=== PATIENT | male | born 1955 | race Two or more races ===

== ENCOUNTER 2024-05-15 23:46 | Inpatient (IN) | payer OTHER ==
[~2024-05-15] VITALS: Ht 170.2 cm; Wt 68.5 kg
[2024-05-16] VITALS (10 sets, daily range): BP systolic 122–140; BP diastolic 62–86; PULSE 55–75; RESP 16–20; TEMP 97.9–98.7; O2SAT 96–99
[2024-05-16] MEDS ORDERED: ACETAMINOPHEN 325 MG TAB PO PRN (02:15)
[2024-05-16] MEDS ORDERED: ONDANSETRON HCL 4 MG/2 ML VIAL IV PRN (02:15)
--- NOTE | 2024-05-16 02:29 | DVHHP2 ---
Admitting Diagnosis: right hip fracture History of Present Illness History Source: Patient Exam Limitations: No limitations HPI Mr. Dirk Ramirez is a 69 yo male with a history of hypertension, epilepsy last seizure reported x 5 years ago, patient presents as a transfer from [facility] ED as per O insurance request status post mechanical fall with right hip pain. Patient found to have right hip fracture. WBC 8.10, H&H 16.8/49.0, Platelets 272, Na 132, K 3.6, BUN 6/0.78, Patient reports he tripped and slipped due to uneven concrete denies any head trauma or LOC. Patient denies any nausea, vomiting, dizziness, headaches, chest pain, numbness or tingling to right lower extremity. Patient admitted for further evaluation. Home Meds Reported Medications Trazodone Hcl (Trazodone Hcl) 100 Mg Tab, 1 TAB PO HS 05/16/24 Topiramate (Topiramate) 25 Mg Tab, 25 MG PO BID, TAB 05/16/24 Tamsulosin Hcl (Tamsulosin Hcl) 0.4 Mg Cap, 1 CAP PO Q12HR 05/16/24 Ropinirole Hydrochloride (Ropinirole Hcl) 1 Mg Tab, 0.25 MG PO HS 05/16/24 Oxcarbazepine (OXTELLAR XR) 300 Mg Tab, 300 MG PO, TAB 05/16/24 Hydrocodone-Acetaminophen (Hydrocodone/Acetaminophen 10-325 mg) 1 Tab Tab, 1 TAB PO TID, TAB 05/16/24 Hctz (Hydrochlorothiazide) 25 Mg Tab, 25 MG PO DAILY, TAB 05/16/24 Gabapentin (Gabapentin) 800 Mg Tab, 1 TAB PO TID 05/16/24 Fluticasone Furoate (Flonase Sensimist) 27.5 Mcg/[place], 27.5 MCG NA, ML 05/16/24 Amlodipine Besylate (NORVASC TABLET) 5 Mg Tb, 5 MG PO DAILY, TAB 05/16/24 Past Medical History Cardiac: HTN Pulmonary: No pertinent Hx Central Nervous System: Seizure (last seizure x 5 years ago), Other (epilepsy) GI: No pertinent Hx Hemotology/Oncology: No pertinent Hx Hepatobiliary: No pertinent Hx Psychiatric: No pertinent Hx Musculoskeletal: No pertinent Hx Rheumotologic: No pertinent Hx Infectious Disease: No peritnent Hx ENT: No pertinent Hx Renal/: No pertinent Hx Endocrine: No pertinent Hx Dermatology: No pertinent Hx Smoker: No Hx (Negative) Alocohol: None Drugs: None Lives with: With family Domestic Violence: Neg Review of Systems Constitutional: No symptom reported Ears, Nose, & Throat: No symptom reported Eyes: No symptom reported Pulmonary/Respiratory: No symptom reported Cardiovascular: No symptom reported Gastrointestinal: No symptom reported Genitourinary: No symptom reported Musculoskeletal: Other (right hip pain) Skin: No symptom reported Psychiatric: No symptom reported Endocrine: No symptom reported Hemotologic/Lymphatic: No symptom reported H&P Exam General Appeara: Well developed, Normal Appearance, Thin Head Exam: Normal inspection Neck Exam: Normal inspection, Non-tender, Normal alignment Eye Exam: bilateral eye Normal inspection, bilateral eye PERRL, bilateral eye EOMI Ear Exam: bilateral ear Auricle normal Nasal Exam: Normal inspection Mouth: Normal Inspection Pulmonary/Respiratory: Normal inspection, Normal breath sounds, Chest non- tender, Lungs clear Cardiovascular/Chest: Normal inspection, Regular rate, Normal Rhythm Peripheral Pulses: 2+ dorsalis pedis (R), 2+ dorsalis pedis (L), 2+ Radial (R), 2+ Radial (L) Abdominal Exam: Normal bowel sounds, Soft, No tenderness Rectal Exam: Deferred Male Genital Exam: Not done Hip exam: Deformity, Limited range of motion, Pain, Swelling Neuro/Mental St: Alert, Oriented Appearance: Appropriate appearance, Appropriate insight Eye contact/ Speech: Cooperative, Good eye contact, Normal speech Thoughts/Psych: Normal thought pattern Skin Exam: Normal inspection, Normal color, Warm/dry Assessment/Plan Problem List: (1) Closed right hip fracture Plan 69 yo male with known history of hypertension, epilepsy presents as a transfer from [facility] ED as per O insurance requests with s/p mechanical fall with right hip pain. 1. Right hip fracture Admit telemetry unit Orthopedic consultation IV fluids NPO except ice chips medications EKG, Urinalysis analgesic as needed for pain management fall precautions CT abdomen pelvis wo contrast Discussed all above with patient who verbalizes agreement and understanding of care plan. All questions were answered. Discussed care plan with patient nurse Sharda IBRAHIM. Discussed assessment and care plan with supervising MD. Plan discussed with: Patient, Other Code Visit Code Visit Total Time (mins): 45 Additional Comments Additional Comments Additional Comments 69-year-old male with a known history of epilepsy, hypertension, BPH initially presented to the hospital with a status post fall found to have right hip fracture. 1. Right hip fracture status post mechanical fall 2. Epilepsy 3. Hypertension 4. BPH -orthopedics consultation, nonweightbearing of right lower extremity for now -DVT GI prophylaxis. SHIRA LARA May 16, 2024 02:29 CAESAR DURAN MD May 16, 2024 17:28
[2024-05-16] MEDS ORDERED: FLUT1SUS (03:22)
[2024-05-16] MEDS ORDERED: TRAZ-228 PO (03:22)
[2024-05-16] MEDS ORDERED: GABA800T97 PO (03:22)
[2024-05-16] MEDS ORDERED: HYDR25TA5 PO (03:22)
[2024-05-16] MEDS ORDERED: AML5T PO (03:22)
[2024-05-16] MEDS ORDERED: OXCA300T50 PO (03:22)
[2024-05-16] MEDS ORDERED: HYDR-4072 PO (03:22)
[2024-05-16] MEDS ORDERED: ROPI1TAB78 PO (03:22)
[2024-05-16] MEDS ORDERED: TAMS0.4C39 PO (03:22)
[2024-05-16] MEDS ORDERED: TOPI25TA84 PO (03:22)
[2024-05-16 03:32] LABS: Urine Bacteria None Seen /hpf (None Seen)
[2024-05-16 03:35] LABS: Urine Blood Negative /uL (Negative); Urine Clarity Clear (Clear); Urine Color Colorless (Yellow); Urine Protein, UAD Negative (Negative); Urine Specific Gravity 1.003 (1.001-1.035); Urine Urobilinogen Normal (Negative); Urine WBC <1 /hpf (0 - 3)
[2024-05-16] MEDS: D5W/SOD CHL 0.45% 1,000 ML IV SCH (05:36)
[2024-05-16] MEDS: MORPHINE SULFATE INJ 2 MG/ml SYRG IV PRN (05:45)
[2024-05-16 07:50] LABS: Basophils # (auto) 0 10 ^3/uL (0-0.2); Basophils % (auto) 0.3 % (0.0-2.0); Eosinophils # (auto) 0.1 10 ^3/uL (0-0.8); Eosinophils % (auto) 1.1 % (0.0-7.0); Hematocrit 40.8 % (41.0-53.0); Hemoglobin 14.3 g/dL (13.5-17.5); Lymphocytes # (auto) 1.2 10 ^3/uL (0.4-5.4); Lymphocytes % (auto) 15.8 % (10.0-50.0); Mean Corpuscular Hemoglobin 35.6 pg (28.0-32.0); Mean Corpuscular Hgb Conc. 34.9 g/dL (32.0-36.0); Mean Corpuscular Volume 101.9 fL (80.0-100.0); Monocytes % (auto) 12.2 % (0.0-12.0); Neutrophils # (auto) 5.5 10 ^3/uL (1.6-8.6); Neutrophils % (auto) 70.6 % (37.0-80.0); Nucleated Red Blood Cells % 0.2 %; Platelet Count (auto) 146 10^3/uL (140-450); Red Cell Distribution Width 13.8 % (11.8-14.3); White Blood Cell 7.8 10^3/uL (4.4-10.8)
[2024-05-16 08:00] LABS: INR 1.13 (0.9-1.15); Prothrombin Time 11.9 sec (9.3-11.8)
[2024-05-16 08:01] LABS: Chloride 105 mmol/L (98-107); Potassium 3.8 mmol/L (3.5-5.1); Sodium 139 mmol/L (136-145)
[2024-05-16 08:02] LABS: Anion Gap 7 (5-15); Calcium 9.3 mg/dL (8.7-10.4); Carbon Dioxide 27 mmol/L (20-31)
[2024-05-16 08:07] LABS: Glucose 87 mg/dL (74-106)
[2024-05-16 08:11] LABS: Blood Urea Nitrogen 6 mg/dL (9-23)
[2024-05-16] MEDS: ENOXAPARIN SOD 40 MG/0.4 ML SYRINGE SC SCH (10:00)
[2024-05-16] MEDS: PANTOPRAZOLE 40 MG/10 ML VIAL INJ IV SCH (10:11)
[2024-05-16] MEDS: HYDROcodone-ACET 5/325MG TAB PO PRN (13:06)
--- NOTE | 2024-05-16 13:22 | DVH ---
INDICATION: RIGHT HIP FRACTURE COMPARISON: None TECHNIQUE: CT of the right hip was performed without contrast. Volume transverse images were obtained and reconstructed in multiple planes using bone and soft tissue algorithms. Radiation Dose Information: CT Dose: CTDI volume is 8.31 mGy. Dose-length product is 258.18 mGy*cm FINDINGS: Comminuted and minimally displaced acute traumatic fracture of the right hip involving the intertroch anteric region. No evidence of traumatic dislocation. There is no joint effusion. Focal soft tissue edema surrounding the right hip fracture. IMPRESSION: 1. Comminuted in minimally displaced acute traumatic fracture of the right hip involving the intertro chanteric region. 2. All CT scans at this medical facility are performed using dose modulation techniques as appropriat e to a performed exam including the following: Automated exposure control was utilized; adjustment of the MA and/or KV according to patient size; and use of iterative reconstruction technique.
[2024-05-17] VITALS (8 sets, daily range): BP systolic 104–134; BP diastolic 46–75; PULSE 43–99; RESP 15–18; TEMP 97.2–98.5; O2SAT 53–99
[2024-05-17 06:49] LABS: Chloride 105 mmol/L (98-107); Sodium 138 mmol/L (136-145)
[2024-05-17 06:50] LABS: Anion Gap 4 (5-15); Calcium 9.2 mg/dL (8.7-10.4); Carbon Dioxide 29 mmol/L (20-31)
[2024-05-17 06:55] LABS: BUN/Creatinine Ratio 11.5 (10.0-20.0); Blood Urea Nitrogen 10 mg/dL (9-23); Glucose 99 mg/dL (74-106)
[2024-05-17 06:58] LABS: Basophils # (auto) 0 10 ^3/uL (0-0.2); Mean Corpuscular Hemoglobin 35.4 pg (28.0-32.0); Nucleated Red Blood Cells % 0.1 %
[2024-05-17 07:01] LABS: Basophils % (auto) 0.1 % (0.0-2.0); Eosinophils # (auto) 0.2 10 ^3/uL (0-0.8); Eosinophils % (auto) 1.8 % (0.0-7.0); Hematocrit 40.8 % (41.0-53.0); Lymphocytes # (auto) 1.6 10 ^3/uL (0.4-5.4); Lymphocytes % (auto) 17.8 % (10.0-50.0); Mean Corpuscular Hgb Conc. 34.3 g/dL (32.0-36.0); Monocytes % (auto) 11.2 % (0.0-12.0); Neutrophils # (auto) 6.2 10 ^3/uL (1.6-8.6); Neutrophils % (auto) 69.1 % (37.0-80.0); Platelet Count (auto) 142 10^3/uL (140-450); Red Blood Cells 3.96 10^6/uL (4.5-5.90); Red Cell Distribution Width 13.8 % (11.8-14.3)
[2024-05-17] MEDS ORDERED: fentaNYL CITRATE 100 MCG/2 ML VL ONE (07:21)
[2024-05-17] MEDS ORDERED: MIDAZOLAM HCL 2MG/2ML 2ml VIAL (1mg/ml) ONE (07:21)
[2024-05-17] MEDS ORDERED: PROPOFOL 10 MG/ML 20 ML IV ONE (07:24)
[2024-05-17] MEDS: BUPIVACAINE 0.25% INJ 50ML VIAL ONE (07:34)
[2024-05-17] MEDS: ceFAZolin 2 GM/D5W100ml 100 ML IV ONE (08:00)
--- NOTE | 2024-05-17 08:30 | DVH ---
Procedure: XY CHEST PORTABLE 05/17/2024 07:58 AM Indication: PRE-OP EVAL Comparison: None TECHNIQUE: XY CHEST PORTABLE FINDINGS: Medical devices: None. Cardiomediastinal: The heart is normal in size. Pulmonary vasculature is within normal limits. Athero sclerotic calcification of the aortic arch noted. Lungs: Streaky opacities are seen in the right lower lung zone. There is thickening of the minor fiss ure. Slight tenting of the right hemidiaphragm with ill-defined contour of the lateral right hemidiap hragm. The costophrenic angles are clear. No pneumothorax. Bones/soft tissues: No acute abnormality is noted. IMPRESSION: 1. No acute cardiopulmonary disease . 2. Right lower parenchymal scarring and pleural thickening likely sequela of a prior infection. A sub centimeter right lower lobe pulmonary nodule can not be ruled out. Suggest further evaluation with [facility] CT scan without IV contrast.
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
[2024-05-17] MEDS ORDERED: ePHEDrine SULFATE 50 MG/ML AMP ONE (09:20)
[2024-05-17] MEDS: ROPIVACAINE 0.5% (5MG/ML) 20ML AMPULE IJ ONE (09:58)
[2024-05-17] MEDS ORDERED: HYDROmorphone HCL 2 MG/ML VL/or syr IV PRN (10:30)
[2024-05-17] MEDS: ONDANSETRON HCL 4 MG/2 ML VIAL IV ONE (10:30)
[2024-05-17] MEDS ORDERED: ACETAMINOPHEN IV 1000 MG/100ML (10MG/ML) IV PRN (10:30)
--- NOTE | 2024-05-17 10:32 | DVHOP2 ---
Operative Report - 2 Report Details Date: 05/17/24 Preop Diagnosis: Right intertrochanteric fracture Postop Diagnosis: same Surgeon: Gume Guo MD Want Ad Clerk: none Anesthesiologist: Dr Lockhart Anesthesia: Regional Drains: none Implant: Short IM hip senthil with two porximmal screws Consent: The patient was informed of the risks and benefits of the procedure. These include but are not limited to complications of anesthesia, postoperative infection, incomplete relief of symptoms, recurrence of symptoms, damage to blood vessels, nerves and tendons, deep venous thrombosis, pulmonary embolism and possible need for repeat surgery in the future. Complications: none Estimated Blood Loss: 100 cc Fluids: 1 L crystalloid Findings: Right hip IT fracture Indications for Surgery: unstable fracture right proximal femur Name of Procedure Performed Open reduction internal fixation of right intertrochanteric femur fracture Procedure Details Procedure Details: Patient brought in the operating room given Ancef 1 g IV piggyback preoperatively TXA 1 g IV piggyback preoperatively placed onto flat fracture table after receiving spinal anesthetic Dr. Lockhart and substation inspector without complication well-padded peroneal post seatbelt across waist left leg in well leg chandler well-padded right leg in traction well-padded longitudinal traction slight internal rotation slight adduction and C-arm fluoro showing anatomic alignment of fracture sterile prep and drape of right hip and lower extremity time-out performed confirmation right side correct site after review of operative consent history and physical my initials on right thigh all present operating room agreeing right side correct side ORIF of right intertrochanteric femur fracture correct procedure 3 cm incision made 3 cm proximal to tip of greater trochanter sharp dissection through skin down to deep fascia deep fascia divided blunt dissection down to tip of greater trochanter guide pin placed on tip of greater trochanter and and placed into intramedullary canal C-arm fluoro taken AP and lateral view confirming good position of guide pin reaming then performed to gain access for intramedullary senthil intramedullary senthil then placed on canal and 2 screws placed into the femoral head and neck under C-arm guidance no distal scr ews due to good overall stability stable fracture pattern a standard inner troch as well as 2 proximal screws irrigation performed excellent hemostasis noted the skin closed with 2-0 Vicryl kathrin fluffs ABD paper tape no drain specimens complications. Condition Stable Disposition Still a Patient GUME GUO MD May 17, 2024 10:32
[2024-05-17] MEDS ORDERED: BISACODYL 5 MG EC TAB PO PRN (10:45)
[2024-05-17] MEDS ORDERED: NITROGLYCERIN 0.4 MG SL TAB SL PRN (10:45)
[2024-05-17] MEDS: ceFAZolin 1GM/50ML 50 ML IV SCH (10:45)
[2024-05-17] MEDS: LACTATED RINGER'S 1,000 ML IV SCH (10:45)
[2024-05-17] MEDS: CLINDAMYCIN 600MG IV 50 ML IV SCH (12:12)
[2024-05-17] MEDS: KETOROLAC TROMETH 30 MG/ML 1ML VIAL IV SCH (12:12)
--- NOTE | 2024-05-17 12:49 | DVH ---
C-ARM FLUOROSCOPY: PROCEDURE: left hip orif FLUOROSCOPY TIME: 1 min 1 sec
--- NOTE | 2024-05-17 12:49 | DVH ---
C-ARM FLUOROSCOPY: PROCEDURE: left hip orif FLUOROSCOPY TIME: 1 min 1 sec
--- NOTE | 2024-05-17 16:16 | DVHPN2 ---
Subjective OVERNIGHT EVENTS NOTED. Reviewed: Care Plan Changes from previous H/P or p: No Changes Objective Vitals Vital Signs Date Time Temp Pulse Resp B/P (MAP) Pulse Ox O2 Delivery O2 Flow Rate FiO2 05/17/24 14:31 68 16 125/63 05/17/24 13:00 97.2 53 97.2 05/17/24 10:22 Room Air 0 05/17/24 10:22 95 Intake/Output Intake and Output 05/17/24 07:00 Intake Total 836 ml Output Total 1630 ml Balance -794 ml Intake Oral 836 ml Output Urine Total 1630 ml # Voids 1 Exam HEENT PUPILS REACTIVE NECK IS SUPPLE CV IS S1-S2 REGULAR RATE AND RHYTHM DIMINISHED BREATH SOUNDS BASES GI POSITIVE BOWEL SOUNDS EXTREMITY NO EDEMA WIRE WEAVER CLOTH NO MOTOR DEFICIT EXCEPT RIGHT LOWER EXTREMITY CAN NOT BE TESTED BECAUSE OF RECENT SURGERY. Medications Current Medications Medications Dose Ordered Sig/Migel Route Start Time Stop Time Status Last Admin Dose Admin Ondansetron HCl 4 mg Q6HPRN PRN IV 05/16/24 02:15 Morphine Sulfate 2 mg Q6HPRN PRN IV 05/16/24 02:15 05/17/24 14:01 2 MG Enoxaparin Sodium 40 mg DAILY SC 05/16/24 10:00 05/16/24 10:00 40 MG Acetaminophen/ Hydrocodone Bitart 1 tab Q6HPRN PRN PO 05/16/24 02:15 05/16/24 19:37 1 TAB Acetaminophen 650 mg Q6HPRN PRN PO 05/16/24 02:15 Pantoprazole Sodium 40 mg DAILY IV 05/16/24 10:00 05/16/24 10:11 40 MG Dextrose/Sodium Chloride 1,000 ml @ 75 mls/hr [id number] IV 05/16/24 05:30 05/17/24 07:06 75 MLS/HR Lactated Ringer's 1,000 ml @ 100 mls/hr Q10H IV 05/17/24 10:45 Cefazolin Sodium 50 ml @ 50 mls/hr Q6H IV 05/17/24 10:45 05/17/24 23:44 Clindamycin Phosphate 50 ml @ 50 mls/hr Q6HR IV 05/17/24 12:00 05/18/24 00:59 05/17/24 12:12 50 MLS/HR Docusate Sodium 100 mg Q12HR PO 05/17/24 22:00 Bisacodyl 5 mg Q12HP PRN PO 05/17/24 10:45 Ketorolac Tromethamine 15 mg Q6HR IV 05/17/24 12:00 05/22/24 11:59 05/17/24 12:12 15 MG Nitroglycerin 0.4 mg Q5MINP PRN SL 05/17/24 10:45 Laboratory Results Laboratory Tests 05/17/24 06:02 Chemistry Test 05/17/24 06:02 Calcium Level 9.2 mg/dL (8.7-10.4) Urinalysis Test 05/16/24 03:23 Urine Color Colorless (Yellow) Urine Clarity Clear (Clear) Urine pH 5.0 (5.0-9.0) Urine Specific [place] 1.003 (1.001-1.035) Urine Protein Negative (Negative) Urine Ketones Negative (Negative) Urine Blood Negative /uL (Negative) Urine Nitrite Negative (Negative) Urine Bilirubin Negative (Negative) Urine Urobilinogen Normal mg/dL (Negative) Urine Leukocyte Esterase Negative /uL (Negative) Urine RBC <1 /hpf (0 - 3) Urine WBC <1 /hpf (0 - 3) Urine Squamous Epithelial Cells None seen /hpf (<5) Urine Bacteria None seen /hpf (None Seen) Urine Glucose Normal mg/dL (Normal) Assessment/Plan Assessment/Plan 69-year-old male with a known history of epilepsy, hypertension, BPH initially presented to the hospital with a status post fall found to have right hip fracture. 1. Right hip fracture status post mechanical fall STATUS POST INTRAMEDULLARY POSTOP DAY 0 2. Epilepsy 3. Hypertension 4. BPH -PAIN MEDS NEEDED, DVT GI PROPHYLAXIS, PHYSICAL THERAPY EVALUATION AND TREATMENT -DISCHARGE PLAN Plan discussed with: Patient Date of Service: May 17, 2024 Billing Provider: CAESAR DURAN MD Common Visit Codes: NOT BILLABLE CAESAR DURAN MD May 17, 2024 16:16
[2024-05-17] MEDS: DOCUSATE SOD 100 MG CAP PO SCH (21:30)
[2024-05-18] VITALS (8 sets, daily range): BP systolic 110–140; BP diastolic 41–70; PULSE 55–78; RESP 17–20; TEMP 98–99.6; O2SAT 99–100
[2024-05-18 05:43] LABS: Basophils # (auto) 0 10 ^3/uL (0-0.2); Eosinophils # (auto) 0.2 10 ^3/uL (0-0.8); Eosinophils % (auto) 2.3 % (0.0-7.0); Mean Corpuscular Volume 102.3 fL (80.0-100.0)
[2024-05-18 05:46] LABS: Basophils % (auto) 0.3 % (0.0-2.0); Hematocrit 30.3 % (41.0-53.0); Hemoglobin 10.5 g/dL (13.5-17.5); Lymphocytes # (auto) 1.2 10 ^3/uL (0.4-5.4); Lymphocytes % (auto) 14.8 % (10.0-50.0); Mean Corpuscular Hemoglobin 35.6 pg (28.0-32.0); Mean Corpuscular Hgb Conc. 34.8 g/dL (32.0-36.0); Monocytes # (auto) 1.1 10 ^3/uL (0-1.3); Monocytes % (auto) 13.7 % (0.0-12.0); Neutrophils # (auto) 5.7 10 ^3/uL (1.6-8.6); Neutrophils % (auto) 68.9 % (37.0-80.0); Platelet Count (auto) 127 10^3/uL (140-450); Red Blood Cells 2.96 10^6/uL (4.5-5.90); Red Cell Distribution Width 13.4 % (11.8-14.3); White Blood Cell 8.3 10^3/uL (4.4-10.8)
[2024-05-18 06:03] LABS: Anion Gap 3 (5-15); Carbon Dioxide 30 mmol/L (20-31); Chloride 105 mmol/L (98-107); Sodium 138 mmol/L (136-145)
[2024-05-18 06:04] LABS: Calcium 8.9 mg/dL (8.7-10.4)
[2024-05-18 06:09] LABS: BUN/Creatinine Ratio 11.3 (10.0-20.0); Blood Urea Nitrogen 9 mg/dL (9-23)
[2024-05-18 06:16] LABS: Glucose 117 mg/dL (74-106)
--- NOTE | 2024-05-18 13:28 | DVHPN2 ---
Date of Progress Note Date of Progress Note Date of Progress Note: 05/18/24 Date of Admission Date of Admission Date of Admission: Date of Admission: May 16, 2024 at 02:18 Overnight Events Overnight events Overnight Events Pt progressed to reg diet, faizan pain on PO meds, lofton removed and able to void Past Medical History Past Medical History Past Medical History HTN, epilepsy, last seizure 5y ago, HTN Family History Family History Family History: Patient reports no known family medical history. Allergies: Coded Allergies: NO KNOWN ALLERGIES (Unverified , 05/16/24) Home Meds Reported Medications Trazodone Hcl (Trazodone Hcl) 100 Mg Tab, 1 TAB PO HS 05/16/24 Topiramate (Topiramate) 25 Mg Tab, 25 MG PO BID, TAB 05/16/24 Tamsulosin Hcl (Tamsulosin Hcl) 0.4 Mg Cap, 1 CAP PO Q12HR 05/16/24 Ropinirole Hydrochloride (Ropinirole Hcl) 1 Mg Tab, 0.25 MG PO HS 05/16/24 Oxcarbazepine (OXTELLAR XR) 300 Mg Tab, 300 MG PO, TAB 05/16/24 Hydrocodone-Acetaminophen (Hydrocodone/Acetaminophen 10-325 mg) 1 Tab Tab, 1 TAB PO TID, TAB 05/16/24 Hctz (Hydrochlorothiazide) 25 Mg Tab, 25 MG PO DAILY, TAB 05/16/24 Gabapentin (Gabapentin) 800 Mg Tab, 1 TAB PO TID 05/16/24 Fluticasone Furoate (Flonase Sensimist) 27.5 Mcg/[place] Arlet, 27.5 MCG NA, ML 05/16/24 Amlodipine Besylate (NORVASC TABLET) 5 Mg Tb, 5 MG PO DAILY, TAB 05/16/24 Current Medications Current Medications Medications (Trade) Dose Ordered Sig/Migel Route PRN Reason Start Time Stop Time Status Last Admin Docusate Sodium (Colace Capsule) 100 mg Q12HR PO 05/17/24 22:00 05/17/24 21:30 Physical Examination General Examination: Last Vital sign Vital Signs Date Time Temp Pulse Resp B/P (MAP) Pulse Ox O2 Delivery O2 Flow Rate FiO2 05/18/24 09:00 98.3 60 20 128/70 (89) 100 98.3 05/17/24 20:00 Room Air* 0 21 General: General: No apparent distress, appears comfortable. Cooperative. Extremities: right hip, no drainage, NVI, not up w PT yet Skin: no drainage Neurological Examination: Neurological Examination: Mental Status: Cranial Nerves: Motor Examination: Reflexes: Sensory: Coordination: Gait: NVI Labs: Labs: Laboratory Tests Test 05/16/24 03:23 05/16/24 05:58 05/17/24 06:02 05/18/24 05:11 Range/Units Urine Color Colorless Yellow Urine Clarity Clear Clear Urine pH 5.0 5.0-9.0 Urine Specific [place] 1.003 1.001-1.035 Urine Protein Negative Negative Urine Ketones Negative Negative Urine Blood Negative Negative /uL Urine Nitrite Negative Negative Urine Bilirubin Negative Negative Urine Urobilinogen Normal Negative mg/dL Urine Leukocyte Esterase Negative Negative /uL Urine RBC <1 0 - 3 /hpf Urine WBC <1 0 - 3 /hpf Urine Squamous Epithelial Cells None seen <5 /hpf Urine Bacteria None seen None Seen /hpf Urine Glucose Normal Normal mg/dL White Blood Count 7.8 9.0 8.3 4.4-10.8 10^3/uL Red Blood Count 4.00 L 3.96 L 2.96 L 4.5-5.90 10^6/uL Hemoglobin 14.3 14.0 10.5 #L 13.5-17.5 g/dL Hematocrit 40.8 L 40.8 L 30.3 #L 41.0-53.0 % Mean Corpuscular Volume 101.9 H 103.0 H 102.3 H 80.0-100.0 fL Mean Corpuscular Hemoglobin 35.6 H 35.4 H 35.6 H 28.0-32.0 pg Mean Corpuscular Hemoglobin Concent 34.9 34.3 34.8 32.0-36.0 g/dL Red Cell Distribution Width 13.8 13.8 13.4 11.8-14.3 % Platelet Count 146 142 127 L 140-450 10^3/uL Mean Platelet Volume 7.7 7.5 7.8 6.9-10.8 fL Neutrophils (%) (Auto) 70.6 69.1 68.9 37.0-80.0 % Lymphocytes (%) (Auto) 15.8 17.8 14.8 10.0-50.0 % Monocytes (%) (Auto) 12.2 H 11.2 13.7 H 0.0-12.0 % Eosinophils (%) (Auto) 1.1 1.8 2.3 0.0-7.0 % Basophils (%) (Auto) 0.3 0.1 0.3 0.0-2.0 % Neutrophils # (Auto) 5.5 6.2 5.7 1.6-8.6 10 ^3/uL Lymphocytes # (Auto) 1.2 1.6 1.2 0.4-5.4 10 ^3/uL Monocytes # (Auto) 1.0 1.0 1.1 0-1.3 10 ^3/uL Eosinophils # (Auto) 0.1 0.2 0.2 0-0.8 10 ^3/uL Basophils # (Auto) 0 0 0 0-0.2 10 ^3/uL Nucleated Red Blood Cells 0.2 0.1 0.0 % Prothrombin Time 11.9 H 9.3-11.8 sec Prothrombin Time INR 1.13 0.9-1.15 Sodium Level 139 138 138 136-145 mmol/L Potassium Level 3.8 4.0 4.0 3.5-5.1 mmol/L Chloride Level 105 105 105 98-107 mmol/L Carbon Dioxide Level 27 29 30 20-31 mmol/L Anion Gap 7 4 L 3 L 5-15 Blood Urea Nitrogen 6 L 10 9 9-23 mg/dL Creatinine 0.75 0.87 0.80 0.700-1.30 mg/dL Glomerular Filtration Rate Calc 98 93 96 >90 mL/min BUN/Creatinine Ratio 8.0 L 11.5 11.3 10.0-20.0 Serum Glucose 87 99 117 H 74-106 mg/dL Calcium Level 9.3 9.2 8.9 8.7-10.4 mg/dL Assessment/Plan Assessment/Plan Assessment and Plan:Dirk Ramirez is a 69 year old male who presents with POD 1 s/p Right IT fx ORIF, Ht 30, lofton out, able to void, faizan pain on POs 1) PT, TDWB right LE 2) am CBC Plan discussed with: Patient AMEENA GUO MD May 18, 2024 13:28
[2024-05-18 14:20] LABS: Basophils # (auto) 0 10 ^3/uL (0-0.2); Basophils % (auto) 0.3 % (0.0-2.0); Eosinophils # (auto) 0.2 10 ^3/uL (0-0.8); Eosinophils % (auto) 1.9 % (0.0-7.0); Hemoglobin 10.4 g/dL (13.5-17.5); Lymphocytes # (auto) 1.2 10 ^3/uL (0.4-5.4); Lymphocytes % (auto) 12.8 % (10.0-50.0); Mean Corpuscular Hemoglobin 35.6 pg (28.0-32.0); Mean Corpuscular Hgb Conc. 34.8 g/dL (32.0-36.0); Mean Corpuscular Volume 102.2 fL (80.0-100.0); Monocytes # (auto) 1.2 10 ^3/uL (0-1.3); Monocytes % (auto) 12.8 % (0.0-12.0); Neutrophils # (auto) 6.8 10 ^3/uL (1.6-8.6); Neutrophils % (auto) 72.2 % (37.0-80.0); Nucleated Red Blood Cells % 0.1 %; Platelet Count (auto) 135 10^3/uL (140-450); Red Blood Cells 2.93 10^6/uL (4.5-5.90); Red Cell Distribution Width 13.6 % (11.8-14.3); White Blood Cell 9.3 10^3/uL (4.4-10.8)
--- NOTE | 2024-05-18 17:05 | DVHPN2 ---
Subjective OVERNIGHT EVENTS NOTED. Patient is status post right hip surgery. Reviewed: Care Plan Changes from previous H/P or p: No Changes Objective Vitals Vital Signs Date Time Temp Pulse Resp B/P (MAP) Pulse Ox O2 Delivery O2 Flow Rate FiO2 05/18/24 09:00 98.3 60 20 128/70 (89) 100 98.3 05/17/24 20:00 Room Air* 0 21 Intake/Output Intake and Output 05/18/24 07:00 Intake Total 1865 ml Output Total 1150 ml Balance 715 ml Intake Oral 590 ml IV Total 1275 ml Output Urine Total 1150 ml Exam HEENT PUPILS REACTIVE NECK IS SUPPLE CV IS S1-S2 REGULAR RATE AND RHYTHM DIMINISHED BREATH SOUNDS BASES GI POSITIVE BOWEL SOUNDS EXTREMITY NO EDEMA FIRE LIEUTENANT MARINE NO MOTOR DEFICIT EXCEPT RIGHT LOWER EXTREMITY CAN NOT BE TESTED BECAUSE OF RECENT SURGERY. Medications Current Medications Medications Dose Ordered Sig/Migel Route Start Time Stop Time Status Last Admin Dose Admin Ondansetron HCl 4 mg Q6HPRN PRN IV 05/16/24 02:15 Morphine Sulfate 2 mg Q6HPRN PRN IV 05/16/24 02:15 05/17/24 21:43 2 MG Enoxaparin Sodium 40 mg DAILY SC 05/16/24 10:00 05/16/24 10:00 40 MG Acetaminophen/ Hydrocodone Bitart 1 tab Q6HPRN PRN PO 05/16/24 02:15 05/18/24 12:17 1 TAB Acetaminophen 650 mg Q6HPRN PRN PO 05/16/24 02:15 Pantoprazole Sodium 40 mg DAILY IV 05/16/24 10:00 05/16/24 10:11 40 MG Dextrose/Sodium Chloride 1,000 ml @ 75 mls/hr [id number] IV 05/16/24 05:30 05/17/24 21:35 75 MLS/HR Lactated Ringer's 1,000 ml @ 100 mls/hr Q10H IV 05/17/24 10:45 Docusate Sodium 100 mg Q12HR PO 05/17/24 22:00 05/17/24 21:30 100 MG Bisacodyl 5 mg Q12HP PRN PO 05/17/24 10:45 Ketorolac Tromethamine 15 mg Q6HR IV 05/17/24 12:00 05/22/24 11:59 05/18/24 06:16 15 MG Nitroglycerin 0.4 mg Q5MINP PRN SL 05/17/24 10:45 Laboratory Results Laboratory Tests 05/18/24 05:11 05/18/24 14:03 Chemistry Test 05/18/24 05:11 Calcium Level 8.9 mg/dL (8.7-10.4) Urinalysis Test 05/16/24 03:23 Urine Color Colorless (Yellow) Urine Clarity Clear (Clear) Urine pH 5.0 (5.0-9.0) Urine Specific [place] 1.003 (1.001-1.035) Urine Protein Negative (Negative) Urine Ketones Negative (Negative) Urine Blood Negative /uL (Negative) Urine Nitrite Negative (Negative) Urine Bilirubin Negative (Negative) Urine Urobilinogen Normal mg/dL (Negative) Urine Leukocyte Esterase Negative /uL (Negative) Urine RBC <1 /hpf (0 - 3) Urine WBC <1 /hpf (0 - 3) Urine Squamous Epithelial Cells None seen /hpf (<5) Urine Bacteria None seen /hpf (None Seen) Urine Glucose Normal mg/dL (Normal) Assessment/Plan Assessment/Plan 69-year-old male with a known history of epilepsy, hypertension, BPH initially presented to the hospital with a status post fall found to have right hip fracture. 1. Right hip fracture status post mechanical fall STATUS POST INTRAMEDULLARY POSTOP DAY 1 2. Epilepsy 3. Hypertension 4. BPH -PAIN MEDS NEEDED, DVT GI PROPHYLAXIS, PHYSICAL THERAPY EVALUATION AND TREATMENT -DISCHARGE PLAN once cleared by Orthopedics. Plan discussed with: Patient, Other My Orders Orders - CAESAR DURAN MD Procedure Category Date Status Time * [employer] CONS 05/18/24 Transmitted Consult Pt Request For Service PT 05/18/24 Logged 16:04 Date of Service: May 18, 2024 Billing Provider: CAESAR DURAN MD Common Visit Codes: NOT BILLABLE CAESAR DURAN MD May 18, 2024 17:05
[2024-05-19] VITALS (7 sets, daily range): BP systolic 103–145; BP diastolic 54–67; PULSE 17–77; RESP 17–19; TEMP 98.1–99.2; O2SAT 98–100
[2024-05-19 07:16] LABS: Hemoglobin 9.8 g/dL (13.5-17.5)
[2024-05-19 07:18] LABS: Hematocrit 28.4 % (41.0-53.0)
[2024-05-19 14:06] LABS: Basophils # (auto) 0 10 ^3/uL (0-0.2); Hemoglobin 10.7 g/dL (13.5-17.5); Mean Corpuscular Volume 102.9 fL (80.0-100.0); Monocytes # (auto) 1.1 10 ^3/uL (0-1.3); Neutrophils # (auto) 6.7 10 ^3/uL (1.6-8.6)
[2024-05-19 14:08] LABS: Basophils % (auto) 0.3 % (0.0-2.0); Eosinophils # (auto) 0.2 10 ^3/uL (0-0.8); Eosinophils % (auto) 1.9 % (0.0-7.0); Lymphocytes # (auto) 1.1 10 ^3/uL (0.4-5.4); Lymphocytes % (auto) 12.5 % (10.0-50.0); Mean Corpuscular Hemoglobin 35.5 pg (28.0-32.0); Mean Corpuscular Hgb Conc. 34.5 g/dL (32.0-36.0); Monocytes % (auto) 12.2 % (0.0-12.0); Neutrophils % (auto) 73.1 % (37.0-80.0); Platelet Count (auto) 172 10^3/uL (140-450); Red Blood Cells 3.01 10^6/uL (4.5-5.90); Red Cell Distribution Width 13.4 % (11.8-14.3); White Blood Cell 9.2 10^3/uL (4.4-10.8)
[2024-05-19] MEDS ORDERED: HYDR-4798 PO (15:30)
[2024-05-19] MEDS ORDERED: NALO4SPR2 (15:30)
[2024-05-19] MEDS ORDERED: ASPI-543 PO (15:30)
--- NOTE | 2024-05-19 16:12 | DVHPN2 ---
Date of Progress Note Date of Progress Note Date of Progress Note: 05/19/24 Date of Admission Date of Admission Date of Admission: Date of Admission: May 16, 2024 at 02:18 Overnight Events Overnight events Overnight Events Pt faizan POs well, Pt faizan PT well Past Medical History Past Medical History Past Medical History HTN, epilepsy, last seizure 5y ago, HTN Family History Family History Family History: Patient reports no known family medical history. Allergies: Coded Allergies: NO KNOWN ALLERGIES (Unverified , 05/16/24) Home Meds Active Scripts Aspirin (Aspir-Low) 81 Mg Tab, 81 MG PO BIDPC for 21 Days, #42 TAB Prov:CAESAR DURAN MD 05/19/24 Naloxone HCl (Narcan) 4 Mg/0.1 Ml Spr, 4 MG NA [employer], #2 SPRAY Prov:CAESAR DURAN MD 05/19/24 Hydrocodone-Acetaminophen (Hydrocodone Bitartrate/AC 10-325 mg) 1 Tab Tab, 1 TAB PO Q8HPRN PRN, #14 TAB Prov:CAESAR DURAN MD 05/19/24 Reported Medications Trazodone Hcl (Trazodone Hcl) 100 Mg Tab, 1 TAB PO HS 05/16/24 Topiramate (Topiramate) 25 Mg Tab, 25 MG PO BID, TAB 05/16/24 Tamsulosin Hcl (Tamsulosin Hcl) 0.4 Mg Cap, 1 CAP PO Q12HR 05/16/24 Ropinirole Hydrochloride (Ropinirole Hcl) 1 Mg Tab, 0.25 MG PO HS 05/16/24 Oxcarbazepine (OXTELLAR XR) 300 Mg Tab, 300 MG PO, TAB 05/16/24 Hydrocodone-Acetaminophen (Hydrocodone/Acetaminophen 10-325 mg) 1 Tab Tab, 1 TAB PO TID, TAB 05/16/24 Hctz (Hydrochlorothiazide) 25 Mg Tab, 25 MG PO DAILY, TAB 05/16/24 Gabapentin (Gabapentin) 800 Mg Tab, 1 TAB PO TID 05/16/24 Fluticasone Furoate (Flonase Sensimist) 27.5 Mcg/[place], 27.5 MCG NA, ML 05/16/24 Amlodipine Besylate (NORVASC TABLET) 5 Mg Tb, 5 MG PO DAILY, TAB 05/16/24 Physical Examination General Examination: Last Vital sign Vital Signs Date Time Temp Pulse Resp B/P (MAP) Pulse Ox O2 Delivery O2 Flow Rate FiO2 05/19/24 13:00 98.1 70 18 134/58 (83) 98 98.1 05/18/24 20:00 Room Air* 0 21 General: General: No apparent distress, appears comfortable. Cooperative. HEENT: alert oriented x4 Extremities: Right hip, incision, no drainage, NVI R LE Skin: intact Neurological Examination: Neurological Examination: Mental Status: Cranial Nerves: Motor Examination: Reflexes: Sensory: Coordination: Gait: NVI Labs: Labs: Laboratory Tests Test 05/16/24 03:23 05/16/24 05:58 05/17/24 06:02 05/18/24 05:11 Range/Units Urine Color Colorless Yellow Urine Clarity Clear Clear Urine pH 5.0 5.0-9.0 Urine Specific [place] 1.003 1.001-1.035 Urine Protein Negative Negative Urine Ketones Negative Negative Urine Blood Negative Negative /uL Urine Nitrite Negative Negative Urine Bilirubin Negative Negative Urine Urobilinogen Normal Negative mg/dL Urine Leukocyte Esterase Negative Negative /uL Urine RBC <1 0 - 3 /hpf Urine WBC <1 0 - 3 /hpf Urine Squamous Epithelial Cells None seen <5 /hpf Urine Bacteria None seen None Seen /hpf Urine Glucose Normal Normal mg/dL White Blood Count 7.8 9.0 8.3 4.4-10.8 10^3/uL Red Blood Count 4.00 L 3.96 L 2.96 L 4.5-5.90 10^6/uL Hemoglobin 14.3 14.0 10.5 #L 13.5-17.5 g/dL Hematocrit 40.8 L 40.8 L 30.3 #L 41.0-53.0 % Mean Corpuscular Volume 101.9 H 103.0 H 102.3 H 80.0-100.0 fL Mean Corpuscular Hemoglobin 35.6 H 35.4 H 35.6 H 28.0-32.0 pg Mean Corpuscular Hemoglobin Concent 34.9 34.3 34.8 32.0-36.0 g/dL Red Cell Distribution Width 13.8 13.8 13.4 11.8-14.3 % Platelet Count 146 142 127 L 140-450 10^3/uL Mean Platelet Volume 7.7 7.5 7.8 6.9-10.8 fL Neutrophils (%) (Auto) 70.6 69.1 68.9 37.0-80.0 % Lymphocytes (%) (Auto) 15.8 17.8 14.8 10.0-50.0 % Monocytes (%) (Auto) 12.2 H 11.2 13.7 H 0.0-12.0 % Eosinophils (%) (Auto) 1.1 1.8 2.3 0.0-7.0 % Basophils (%) (Auto) 0.3 0.1 0.3 0.0-2.0 % Neutrophils # (Auto) 5.5 6.2 5.7 1.6-8.6 10 ^3/uL Lymphocytes # (Auto) 1.2 1.6 1.2 0.4-5.4 10 ^3/uL Monocytes # (Auto) 1.0 1.0 1.1 0-1.3 10 ^3/uL Eosinophils # (Auto) 0.1 0.2 0.2 0-0.8 10 ^3/uL Basophils # (Auto) 0 0 0 0-0.2 10 ^3/uL Nucleated Red Blood Cells 0.2 0.1 0.0 % Prothrombin Time 11.9 H 9.3-11.8 sec Prothrombin Time INR 1.13 0.9-1.15 Sodium Level 139 138 138 136-145 mmol/L Potassium Level 3.8 4.0 4.0 3.5-5.1 mmol/L Chloride Level 105 105 105 98-107 mmol/L Carbon Dioxide Level 27 29 30 20-31 mmol/L Anion Gap 7 4 L 3 L 5-15 Blood Urea Nitrogen 6 L 10 9 9-23 mg/dL Creatinine 0.75 0.87 0.80 0.700-1.30 mg/dL Glomerular Filtration Rate Calc 98 93 96 >90 mL/min BUN/Creatinine Ratio 8.0 L 11.5 11.3 10.0-20.0 Serum Glucose 87 99 117 H 74-106 mg/dL Calcium Level 9.3 9.2 8.9 8.7-10.4 mg/dL Test 05/18/24 14:03 05/19/24 06:52 05/19/24 13:10 Range/Units White Blood Count 9.3 9.2 4.4-10.8 10^3/uL Red Blood Count 2.93 L 3.01 L 4.5-5.90 10^6/uL Hemoglobin 10.4 L 9.8 L 10.7 L 13.5-17.5 g/dL Hematocrit 30.0 L 28.4 L 31.0 L 41.0-53.0 % Mean Corpuscular Volume 102.2 H 102.9 H 80.0-100.0 fL Mean Corpuscular Hemoglobin 35.6 H 35.5 H 28.0-32.0 pg Mean Corpuscular Hemoglobin Concent 34.8 34.5 32.0-36.0 g/dL Red Cell Distribution Width 13.6 13.4 11.8-14.3 % Platelet Count 135 L 172 140-450 10^3/uL Mean Platelet Volume 7.7 7.6 6.9-10.8 fL Neutrophils (%) (Auto) 72.2 73.1 37.0-80.0 % Lymphocytes (%) (Auto) 12.8 12.5 10.0-50.0 % Monocytes (%) (Auto) 12.8 H 12.2 H 0.0-12.0 % Eosinophils (%) (Auto) 1.9 1.9 0.0-7.0 % Basophils (%) (Auto) 0.3 0.3 0.0-2.0 % Neutrophils # (Auto) 6.8 6.7 1.6-8.6 10 ^3/uL Lymphocytes # (Auto) 1.2 1.1 0.4-5.4 10 ^3/uL Monocytes # (Auto) 1.2 1.1 0-1.3 10 ^3/uL Eosinophils # (Auto) 0.2 0.2 0-0.8 10 ^3/uL Basophils # (Auto) 0 0 0-0.2 10 ^3/uL Nucleated Red Blood Cells 0.1 0.0 % Assessment/Plan Assessment/Plan Assessment and Plan:Dirk Ramirez is a 69 year old male, POD 2 s/p ORIF R hi p IT fracture If Pt should develop palpitations or dizzyness, present to ER due to interval in house drop in HCT recommend repeat Hct before dc to home Plan discussed with: Patient AMEENA GUO MD May 19, 2024 16:12
--- NOTE | 2024-05-19 16:16 | DVHDS2 ---
Discharge Summary Date of Admission May 16, 2024 at 02:18 Date of Discharge: May 19, 2024 Labs/Diagnostic Data: Laboratory Results Test 05/19/24 13:10 05/18/24 05:11 05/16/24 05:58 05/16/24 03:23 White Blood Count 9.2 10^3/uL (4.4-10.8) Red Blood Count 3.01 10^6/uL (4.5-5.90) Hemoglobin 10.7 g/dL (13.5-17.5) Hematocrit 31.0 % (41.0-53.0) Mean Corpuscular Volume 102.9 fL (80.0-100.0) Mean Corpuscular Hemoglobin 35.5 pg (28.0-32.0) Mean Corpuscular Hemoglobin Concent 34.5 g/dL (32.0-36.0) Red Cell Distribution Width 13.4 % (11.8-14.3) Platelet Count 172 10^3/uL (140-450) Mean Platelet Volume 7.6 fL (6.9-10.8) Neutrophils (%) (Auto) 73.1 % (37.0-80.0) Lymphocytes (%) (Auto) 12.5 % (10.0-50.0) Monocytes (%) (Auto) 12.2 % (0.0-12.0) Eosinophils (%) (Auto) 1.9 % (0.0-7.0) Basophils (%) (Auto) 0.3 % (0.0-2.0) Neutrophils # (Auto) 6.7 10 ^3/uL (1.6-8.6) Lymphocytes # (Auto) 1.1 10 ^3/uL (0.4-5.4) Monocytes # (Auto) 1.1 10 ^3/uL (0-1.3) Eosinophils # (Auto) 0.2 10 ^3/uL (0-0.8) Basophils # (Auto) 0 10 ^3/uL (0-0.2) Nucleated Red Blood Cells 0.0 % Sodium Level 138 mmol/L (136-145) Potassium Level 4.0 mmol/L (3.5-5.1) Chloride Level 105 mmol/L (98-107) Carbon Dioxide Level 30 mmol/L (20-31) Anion Gap 3 (5-15) Blood Urea Nitrogen 9 mg/dL (9-23) Creatinine 0.80 mg/dL (0.700-1.30) Glomerular Filtration Rate Calc 96 mL/min (>90) BUN/Creatinine Ratio 11.3 (10.0-20.0) Serum Glucose 117 mg/dL (74-106) Calcium Level 8.9 mg/dL (8.7-10.4) Prothrombin Time 11.9 sec (9.3-11.8) Prothrombin Time INR 1.13 (0.9-1.15) Urine Color Colorless (Yellow) Urine Clarity Clear (Clear) Urine pH 5.0 (5.0-9.0) Urine Specific [place] 1.003 (1.001-1.035) Urine Protein Negative (Negative) Urine Ketones Negative (Negative) Urine Blood Negative /uL (Negative) Urine Nitrite Negative (Negative) Urine Bilirubin Negative (Negative) Urine Urobilinogen Normal mg/dL (Negative) Urine Leukocyte Esterase Negative /uL (Negative) Urine RBC <1 /hpf (0 - 3) Urine WBC <1 /hpf (0 - 3) Urine Squamous Epithelial Cells None seen /hpf (<5) Urine Bacteria None seen /hpf (None Seen) Urine Glucose Normal mg/dL (Normal) Other Laboratory Tests 05/19/24 13:10 05/18/24 05:11 Brief Hx & Hospital Course: 69-year-old male with a known history of epilepsy, hypertension, BPH initially presented to the hospital with a status post fall found to have right hip fracture status post mechanical fall status post intramedullary senthil placement. Patient does have known history of epilepsy hypertension BPH. Patient is currently stable to be discharged with close follow up as an outpatient with the PCP as well as Orthopedics. Condition at Discharge: Stable Final Diagnosis/Problems List 69-year-old male with a known history of epilepsy, hypertension, BPH initially presented to the hospital with a status post fall found to have right hip fracture. 1. Right hip fracture status post mechanical fall STATUS POST INTRAMEDULLARY POSTOP DAY 1 2. Epilepsy 3. Hypertension 4. BPH Discharge Disposition: Home with [facility] Services [facility] Discharge Will this Physician continue t: No Discharge Instruct/Medications Diet: Cardiac 2g Na,low cholest Activity: See Comment Activity comment: No driving, no signing legal documents, no playing on heavy machinery while on narcotics. Follow Up/Referral: Follow up with the PCP in one week Follow up with Orthopedics Dr. Martin Martines in 1-2 weeks Medications: Medication as prescribed and reconciled Discharge Statement: "Patient was advised to return to the ER or call 911 if any headaches, dizziness, shortness of breath, chest pain, abdominal pain, bleeding, fevers, or worsening of medical condition. Patient was counseled about treatment plan, medications, possible side effects, patientverbalized understanding. All questions were answered to the best of my ability. This discharge took greater then 30 minutes in planning, reviewing documentation, counseling the patient, and discussing with other team members." ASSESSMENT ASSESSMENT Assessment 69-year-old male with a known history of epilepsy, hypertension, BPH initially presented to the hospital with a status post fall found to have right hip fracture. 1. Right hip fracture status post mechanical fall STATUS POST INTRAMEDULLARY POSTOP DAY 1 2. Epilepsy 3. Hypertension 4. BPH Date of Service: May 19, 2024 Billing Provider: CAESAR DURAN MD Common Visit Codes: NOT BILLABLE CAESAR DURAN MD May 19, 2024 16:16
--- NOTE | 2024-05-30 10:37 | ECG ---
[facility] Test Date: 2024-05-17 Test Time: 07:41:25 Pat Name: ROB CARDONA Department: Room: 0218T B Gender: M Load Out Supervisor: ALEXANDRIA HART : 1955 Requested By: AMEENA GUO Order Number: [id number] Reading MD: Jorge Wodo Measurements Intervals [place] Rate: 52 P: -70 MA: 117 QRS: 10 QRSD: 106 T: 42 QT: 456 QTc: 424 Interpretive Statements Sinus or ectopic atrial rhythm Borderline short MA interval Baseline wander in lead(s) V1,V2 Electronically Signed On 05-31-2024 15:34:48 PST by Jorge Wood Please click the below link to view image of tracing.
== END 2024-05-19 18:17 | disposition home health service (06) | DRG 481 ==
LOC: TELE-CENTR 05-16 02:18
PROVIDERS: ADMIT Orthopaedic Surgery; ATTEND Hospitalist
PROC: 0QS606Z Reposition Right Upper Femur with Intramedullary Internal Fixation Device, Open Approach (ICD-10-PCS; principal; 2024-05-17 09:00)
DX: S72.141A Displaced intertrochanteric fracture of right femur, initial encounter for closed fracture (principal); R71.0 Precipitous drop in hematocrit; N40.0 Benign prostatic hyperplasia without lower urinary tract symptoms; G40.909 Epilepsy, unspecified, not intractable, without status epilepticus; J44.9 Chronic obstructive pulmonary disease, unspecified; W18.39XA Other fall on same level, initial encounter; I10 Essential (primary) hypertension; Z87.891 Personal history of nicotine dependence; Z87.442 Personal history of urinary calculi; Z79.891 Long term (current) use of opiate analgesic; Z79.899 Other long term (current) drug therapy; Y93.89 Activity, other specified; Y92.89 Other specified places as the place of occurrence of the external cause; Y99.8 Other external cause status
CPT/HCPCS: 36415; 71045; 73502; 73700; 76000; 80048; 81001; 85014; 85018; 85025; 85610; 86850; 86900; 86901; 93005; 96365; 96375; 97110; 97116; 97163; 99291; G0378; J0131; J1885; J2250; J2470; J2704; J3490